=== PATIENT | female | born 1995 | race Caucasian/White ===

== ENCOUNTER 2021-04-06 16:47 | Emergency (ER) | payer MEDICAID ==
[~2021-04-06] VITALS: Ht 160 cm; Wt 62.4 kg
--- NOTE | 2021-04-06 17:45 | NUR ---
NIL x1.
[2021-04-06 17:58] VITALS: BP 121/87
--- NOTE | 2021-04-06 19:15 | NUR ---
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
== END 2021-04-06 20:01 | disposition home or self-care (01) ==
LOC: ED 19:45
DX: A59.01 Trichomonal vulvovaginitis (principal)
CPT/HCPCS: 99283